=== PATIENT | male | born 1950 | race Caucasian/White ===

== ENCOUNTER 2017-12-12 07:48 | Day surgery (SDC) | payer OTHER ==
[2017-12-12] MEDS: BETADINE OPTH PREP OP PRN ×2 (08:07→08:45)
[2017-12-12] MEDS: TETRACAINE 0.5% OPTH SOL OP PRN ×3 (08:07→09:04)
[2017-12-12] MEDS: CYCLOGYL 2% OPTH OP PRN ×3 (08:08→08:18)
[2017-12-12] MEDS ORDERED: LIDOCAINE 1% 20 ML MDV ID STA (08:20)
[2017-12-12] MEDS ORDERED: AK-DILATE 10% OPTH SOL OP PRN (08:20)
[2017-12-12] MEDS ORDERED: NIRAVAM ODT (SURGERY) PO PRN (08:20)
[2017-12-12] MEDS ORDERED: ZOFRAN 4 MG/2 ML IVP ONE (08:20)
[2017-12-12] MEDS ORDERED: DEX-MOXI-KETOR OPTH INJ 1/0.5/0.4 MG/ML IO ONE (08:20)
[2017-12-12] MEDS ORDERED: BRIMONIDINE TARTRATE 0.2% OPTH SOL OP PRN (08:20)
[2017-12-12] MEDS ORDERED: LIDOCAINE 1%/PHENYLEPHRINE 1.5% BSS (SURGERY) INTRAOCULA ONE (08:20)
[2017-12-12] MEDS ORDERED: SUBLIMAZE ONE (09:00)
[2017-12-12] MEDS ORDERED: VERSED ONE (09:00)
[2017-12-12] MEDS ORDERED: BSS WITH EPINEPHRINE OP ONE (09:04)
[2017-12-14 16:50] VITALS: BP 128/67; TEMP 98.6
== END 2017-12-12 10:00 | disposition home or self-care (01) ==
LOC: SURG 07:48
PROVIDERS: ATTEND Ophthalmology
DX: H25.812 Combined forms of age-related cataract, left eye (principal)

== ENCOUNTER 2017-12-25 08:27 | Day surgery (SDC) ==
[2017-12-25] MEDS: BETADINE OPTH PREP OP PRN ×2 (09:45→10:20)
[2017-12-25] MEDS: CYCLOGYL 2% OPTH OP PRN ×3 (09:45→09:55)
[2017-12-25] MEDS: TETRACAINE 0.5% UNIT-DOSE OP PRN ×2 (09:45→10:20)
[2017-12-25] MEDS ORDERED: LIDOCAINE 1%/PHENYLEPHRINE 1.5% BSS (SURGERY) INTRAOCULA ONE (09:50)
[2017-12-25] MEDS ORDERED: BSS WITH EPINEPHRINE OP ONE (09:50)
[2017-12-25] MEDS ORDERED: BRIMONIDINE TARTRATE 0.2% OPTH SOL OP PRN (09:50)
[2017-12-25] MEDS ORDERED: ZOFRAN 4 MG/2 ML IVP ONE (09:50)
[2017-12-25] MEDS ORDERED: DEX-MOXI-KETOR OPTH INJ 1/0.5/0.4 MG/ML IO ONE (09:50)
[2017-12-25] MEDS ORDERED: LIDOCAINE 1% 20 ML MDV ID STA (10:00)
[2017-12-25] MEDS ORDERED: VERSED ONE (10:40)
[2017-12-25] MEDS ORDERED: SUBLIMAZE ONE (10:40)
[2017-12-25 16:00] VITALS: BP 136/71; TEMP 98.4
== END 2017-12-25 11:30 | disposition home or self-care (01) ==
LOC: SURG 08:27
PROVIDERS: ATTEND Ophthalmology
DX: H25.811 Combined forms of age-related cataract, right eye (principal)